=== PATIENT | male | born 1960 ===

== ENCOUNTER 2017-09-19 06:22 | Emergency (ER) | payer OTHER ==
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
[2017-09-19] MEDS ORDERED: Lidocaine 5% Patch TD STA (08:34)
[2017-09-19] MEDS ORDERED: Lidocaine 5% Patch TD ONE (08:39)
[2017-09-19 09:45] VITALS: BP 130/70; PULSE 87; RESP 17; TEMP 98; O2SAT 99
== END 2017-09-19 09:44 | disposition home or self-care (01) ==
LOC: SUPCPDRO 06:22 → C.ER 06:22
DX: S33.5XXA Sprain of ligaments of lumbar spine, initial encounter (principal); V49.59XA Passenger injured in collision with other motor vehicles in traffic accident, initial encounter; Y92.410 Unspecified street and highway as the place of occurrence of the external cause